=== PATIENT | male | born 1965 ===

== ENCOUNTER 2017-08-12 08:05 | Emergency (ER) | payer OTHER ==
[2017-08-12 08:22] VITALS: RESP 16; TEMP 98.9
--- NOTE | 2017-08-12 09:14 | ED PDOC ---
Arrival/HPI - General Chief Complaint: Back Pain Time Seen by Provider: 08/12/17 08:07 Historian: Patient - History of Present Illness Narrative History of Present Illness (Text): 08/12/17 09:02 52 y/o male, pmh including dm, nkda, c/o lower back and leg pain started yesterday. Pt. stated that he does heavy lifting at work, aching pain, aggravated by movement, no fever or chills, lower back radiating to the rt. calf region, no numbness or tingling, no urinary or bowel incontinence/retention , no rash, no abdominal pain, no pain medication taken at home, no other medical or psychological complaints. Past Medical History - Provider Review Nursing Documentation Reviewed: Yes - Infectious Disease Hx of Infectious Diseases: None - Cardiac Hx Cardiac Disorders: No - Pulmonary Hx Respiratory Disorders: No - Neurological Hx Neurological Disorder: No - HEENT Hx HEENT Disorder: No - Renal Hx Renal Disorder: No - Endocrine/Metabolic Hx Diabetes Mellitus Type 2: Yes - Hematological/Oncological Hx Blood Disorders: No - Integumentary Hx Dermatological Disorder: No - Musculoskeletal/Rheumatological Hx Musculoskeletal Disorders: No - Psychiatric Hx Psychophysiologic Disorder: No Hx Substance Use: No - Anesthesia Hx Anesthesia Reactions: No Family/Social History - Physician Review Nursing Documentation Reviewed: Yes Family/Social History: Unknown Family HX Smoking Status: Unknown If Ever Smoked Hx Alcohol Use: No Hx Substance Use: No Allergies/Home Meds Allergies/Adverse Reactions: Allergies No Known Allergies Allergy (Verified 05/02/17 06:08) Home Medications: Home Meds Medication Instructions Recorded Confirmed MetFORMIN [glucOPHAGE] 500 mg PO BID 08/12/17 08/12/17 Review of Systems - Review of Systems Constitutional: absent: Fatigue, Fevers Eyes: absent: Vision Changes ENT: absent: Hearing Changes Respiratory: absent: SOB, Cough Cardiovascular: absent: Chest Pain Gastrointestinal: absent: Abdominal Pain, Nausea, Vomiting Musculoskeletal: Back Pain. absent: Arthralgias Skin: absent: Rash, Pruritis Neurological: absent: Headache, Dizziness Psychiatric: absent: Anxiety, Depression, Suicidal Ideation Physical Exam Vital Signs Reviewed: Yes Vital Signs Temp Pulse Resp BP Pulse Ox 08/12/17 08:14 98.9 F 82 16 111/69 96 Temperature: Afebrile Blood Pressure: Normal Pulse: Regular Respiratory Rate: Normal Appearance: Positive for: Well-Appearing, Non-Toxic, Comfortable Pain Distress: Moderate Mental Status: Positive for: Alert and Oriented X 3 - Systems Exam Head: Present: Atraumatic, Normocephalic Pupils: Present: PERRL Extroacular Muscles: Present: EOMI Conjunctiva: Present: Normal Mouth: Present: Moist Mucous Membranes Neck: Present: Normal Range of Motion Respiratory/Chest: Present: Clear to Auscultation, Good Air Exchange. No: Respiratory Distress, Accessory Muscle Use Cardiovascular: Present: Regular Rate and Rhythm, Normal S1, S2. No: Murmurs Abdomen: Present: Normal Bowel Sounds. No: Tenderness, Distention, Peritoneal Signs Back: Present: Normal Inspection, Paraspinal Tenderness (lower lumbar region). No: CVA Tenderness, Midline Tenderness, Pain with Leg Raise, Decubitus Ulcer Upper Extremity: Present: Normal Inspection. No: Cyanosis, Edema Lower Extremity: Present: Normal Inspection. No: Edema Neurological: Present: GCS=15, CN II-XII Intact, Speech Normal, Motor Func Grossly Intact, Gait Normal, Memory Normal Skin: Present: Warm, Dry, Normal Color. No: Rashes Psychiatric: Present: Alert, Oriented x 3, Normal Insight, Normal Concentration Medical Decision Making ED Course and Treatment: 08/12/17 09:19 -there is no midline tenderness or traumatic history, no emergent indiction for radiology study on the lower back, will obtain venuous dopplers bilaterally. -Toradol/valium -observe and reassess 08/12/17 10:41 -Bilateral lower extremities venuous doppler: as per preliminary report, no acute DVT -Pt. feels much better, walking with normal gait and posture, no focal neurological deficits, vitally stable, will discharge home -Discharge home with naproxen, flexeril, lidoderm patch, cane, follow up with your own pmd and neurosurgery within 2 days, return to the ER for any new or worsening signs or symptoms. - RAD Interpretation Radiology Orders: 08/12/17 09:09 DUPLEX LOWER EXTRM VEIN BILAT [US] Stat Bilateral lower extremities venuous doppler: as per preliminary report, no acute DVT Room Worker: Radiologist - Medication Orders Current Medication Orders: Discontinued Medications Diazepam (Valium) 5 mg PO ONCE ONE PRN Reason: Protocol Stop: 08/12/17 09:10 Last Admin: 08/12/17 09:26 Dose: 5 mg Ketorolac Tromethamine (Toradol) 60 mg IM STAT STA Stop: 08/12/17 09:10 Last Admin: 08/12/17 09:26 Dose: 60 mg MAR Pain Assessment Document 08/12/17 09:26 EQ (Rec: 08/12/17 09:26 EQ [id number]) Pain Reassessment Is this a pain reassessment? No Sleep Is patient sleeping during reassessment? 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 Disposition/Present on Arrival - Present on Arrival Any Indicators Present on Arrival: No History of DVT/PE: No History of Uncontrolled Diabetes: No Urinary Catheter: No History of Decub. Ulcer: No History Surgical Site Infection Following: None - Disposition Have Diagnosis and Disposition been Completed?: Yes Diagnosis: Sciatica Disposition: HOME/ ROUTINE Disposition Time: 09:20 Patient Plan: Discharge Patient Problems: Current Active Problems Problem Status Onset Sciatica Acute Condition: IMPROVED Discharge Instructions (ExitCare): Sciatica Additional Instructions: -Discharge home with naproxen, flexeril, lidoderm patch, cane, follow up with your own pmd and neurosurgery within 2 days, return to the ER for any new or worsening signs or symptoms. Prescriptions: Cyclobenzaprine [Cyclobenzaprine HCl] 10 mg PO TID PRN #30 tab PRN Reason: Other Lidocaine 5% [Lidoderm] 1 patch TP DAILY PRN #14 patch PRN Reason: Other Naproxen 500 mg PO BID PRN #28 tablet PRN Reason: Other Referrals: PCP,NO [Primary Care Provider] - [place] [facility] [place] [facility] [place] - Follow up with primary Carlos Enrique Ferris MD [Staff Provider] - Follow up with primary Forms: [facility] (Serbian), WORK NOTE
[2017-08-12 10:50] VITALS: BP 121/74; PULSE 81; O2SAT 97
--- NOTE | 2017-08-12 19:21 | US ---
HISTORY: Leg pain and swelling. Evaluate for DVT PHYSICIAN(S): Monty Mead MD. TECHNIQUE: Duplex sonography and color-flow Doppler with graded compression were used to evaluate the deep venous systems of both lower extremities. FINDINGS: The visualized deep venous systems of both lower extremities are sonographically normal and compressible. Normal wave forms and augmentation are seen. There is no sonographic evidence for deep venous thrombosis in the visualized segments of both lower extremities. IMPRESSION: No sonographic evidence for deep venous thrombosis in the visualized segments of both lower extremities.
== END 2017-08-12 10:49 | disposition home or self-care (01) ==
LOC: ED 08:05
DX: M54.30 Sciatica, unspecified side (principal)
CPT/HCPCS: 93970; 96372; 99282; J1885